=== PATIENT | male | born 1990 | race Caucasian/White ===

== ENCOUNTER 2023-07-15 22:23 | Emergency (ER) | payer OTHER ==
[2023-07-15] MEDS ORDERED: SODIUM CHLORIDE 0.9% 1,000 ML IV STA (22:39)
[2023-07-15] MEDS ORDERED: LORazepam 2 MG/ML VIAL IVP STA (22:40)
[2023-07-15] MEDS ORDERED: PHENobarbital 65 MG/ML VIAL IV STA (22:40)
[2023-07-15 22:56] LABS: BASOPHILS # (AUTO) 0.1 10^3/uL (0.0-0.1); BASOPHILS % (AUTO) 0.6 %; EOSINOPHILS % (AUTO) 0.3 %; HGB - HEMOGLOBIN 15.9 g/dL (14.0-18.0); LYMPHOCYTES # (AUTO) 1.2 10^3/uL (1.5-3.5); LYMPHOCYTES % (AUTO) 12.1 %; MEAN CORPUSCULAR HEMOGLOBIN 29.1 pg (27.0-31.0); MEAN CORPUSCULAR HGB CONC 34.6 g/dL (32.0-36.0); MEAN CORPUSCULAR VOLUME 84.1 fL (80.0-94.0); MEAN PLATELET VOLUME 8.5 fL (7.4-11.4); MONOCYTES # (AUTO) 0.8 10^3/uL (0.0-1.0); MONOCYTES % (AUTO) 8.1 %; NEUTROPHILS # (AUTO) 7.6 10^3/uL (1.5-6.6); NEUTROPHILS % (AUTO) 78.7 %; PLT - PLATELET COUNT 344 10^3/uL (130-450); RED BLOOD COUNT 5.47 10^6/uL (4.70-6.10); RED CELL DISTRIBUTION WIDTH 11.3 % (12.0-15.0); WHITE BLOOD COUNT 9.6 x10^3/uL (4.8-10.8)
--- NOTE | 2023-07-15 22:56 | ED Physician Documentation ---
History of Present Illness - Stated complaint Stated Complaint: WITHDRAWL - Chief complaint Chief Complaint: General - History obtained from History obtained from: Patient - Additonal information Additional information: The patient comes to the emergency department chief complaint of shakes and general feeling of unwellness that started around 1600 today. 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 He states that he is not feeling suicidal but does have some guilt. His last drink was 2300 yesterday and he states that when he has had benders before, he has had withdrawal symptoms as well and this is similar. He states he tried to eat today and ended up vomiting the fruit that he tried to eat. However, as long as he has not tried to eat, he does not feel nauseated. He states he is otherwise healthy and not on any medications. No other complaints at this time. PD PAST MEDICAL HISTORY - Past Medical History Past Medical History: No Cardiovascular: None Respiratory: None Neuro: None Endocrine/Autoimmune: None GI: None : None HEENT: None Psych: None Musculoskeletal: None Derm: None - Past Surgical History Past Surgical History: No - Present Medications Home Medications: Ambulatory Orders Medication Instructions Recorded Confirmed LORazepam [Ativan] 1 mg PO Q8H PRN #6 tablet 07/15/23 - Allergies Allergies/Adverse Reactions: Allergies Allergy/AdvReac Type Severity Reaction Status Date / Time No Known Drug Allergies Allergy Verified 07/15/23 22:40 - Social History Does the pt smoke?: No Smoking Status: Never smoker ETOH Use: Liquor Does the pt have substance abuse?: No - Immunizations Immunizations are current?: Yes - POLST Patient has POLST: No PD ED PE NORMAL - Vitals Vital signs reviewed: Yes - General General: Alert and oriented X 3, No acute distress, Well developed/nourished - HEENT HEENT: Atraumatic, PERRL, EOMI, Moist mucous membranes - Neck Neck: Supple, no meningeal sign - Cardiac Cardiac: No murmur, Other (Mildly tachycardic rate regular rhythm no murmurs.) - Respiratory Respiratory: No respiratory distress, Clear bilaterally - Abdomen Abdomen: Soft, Non tender, Non distended - Derm Derm: Normal color, Warm and dry, No rash - Extremities Extremities: No deformity, No edema - Neuro Neuro: Alert and oriented X 3, zinc chloride operator 2-12 intact, No motor deficit, No sensory deficit, Normal speech, Other (Mild, fine tremors, but otherwise normal.) - Psych Psych: Normal mood, Normal affect Results - Vitals Vitals: Vital Signs - 24 hr 07/15/23 07/15/23 07/16/23 22:34 23:27 00:03 Temperature 36.8 C Heart Rate 115 H 80 95 Respiratory 19 19 20 Rate Blood Pressure 148/68 H 135/81 H O2 Saturation 98 99 98 Oxygen O2 Source Room air - Labs Labs: Laboratory Tests 07/15/23 07/15/23 22:49 22:49 WBC 9.6 RBC 5.47 Hgb 15.9 Hct 46.0 MCV 84.1 MCH 29.1 MCHC 34.6 RDW 11.3 L Plt Count 344 MPV 8.5 Neut # (Auto) 7.6 H Lymph # (Auto) 1.2 L [place] # (Auto) 0.8 Eos # (Auto) 0.0 Baso # (Auto) 0.1 Absolute Nucleated RBC 0.00 Nucleated RBC % 0.0 Sodium 130 L Potassium 3.9 Chloride 93 L Carbon Dioxide 28 Anion Gap 9.0 BUN 16 Creatinine 0.8 Estimated GFR (MDRD) 111 Glucose 122 H Calcium 10.7 H Total Bilirubin 1.1 H AST 28 ALT 28 Alkaline Phosphatase 71 Total Protein 8.3 Albumin 5.2 Globulin 3.1 Albumin/Globulin Ratio 1.7 Lipase 19 Ethyl Alcohol < 10.0 PD Medical Decision Making - ED course Complexity details: reviewed results, re-evaluated patient, considered di fferential, d/w patient ED course: The patient was mildly tachycardic and hypertensive, but otherwise looked fairly good. He was started on IV fluids and given a dose of Ativan here in the emergency department. ER abdominal panel and CBC were also obtained. Laboratory studies overall were unremarkable. Alcohol level was negative. The patient was found to be feeling better and vital signs had normalized on reevaluation. He is stable for discharge. His command was with him and able to drive him home. I have sent a prescription for Ativan to the pharmacy of his choice and the patient will follow-up with [place] resources for substance abuse. We have discussed the usual indications for return. Departure - Departure Disposition: 01 Home, Self Care Clinical Impression: Alcohol withdrawal Qualifiers: Complication of substance-induced condition: uncomplicated Qualified Code(s): F10.930 - Alcohol use, unspecified with withdrawal, uncomplicated Condition: Stable Instructions: ED Withdrawal Alcohol Prescriptions: LORazepam [Ativan] 1 mg PO Q8H PRN #6 tablet PRN Reason: Alcohol Withdrawal Comments: You have been treated for your alcohol withdrawal in the emergency department today. Your labs overall look good and do not suggest any problems with your liver or other organ systems. It is important that you get help with your drinking if you feel that has become a problem. A prescription for medication for withdrawal for the next couple of days has been electronically transmitted to the [facility] pharmacy in [place]. You may take this medication as needed, according to the directions, if you feel that your withdrawal symptoms are coming back over the next couple of days. Please continue your plans to [place] Forms: PCP List Discharge Date/Time: 07/16/23 00:03
[2023-07-15 23:10] LABS: ALBUMIN 5.2 g/dL (3.2-5.5); ALBUMIN/GLOBULIN RATIO 1.7 (1.0-2.2); ALKALINE PHOSPHATASE 71 IU/L (42-121); ALT ALANINE AMINOTRANSFERASE 28 IU/L (10-60); AST ASPARTATE AMINOTRANSFERASE 28 IU/L (10-42); BILIRUBIN,TOTAL 1.1 mg/dL (0.2-1.0); BUN - BLOOD UREA NITROGEN 16 mg/dL (6-20); CALCIUM 10.7 mg/dL (8.5-10.3); CARBON DIOXIDE - CO2 28 mmol/L (21-32); CHLORIDE 93 mmol/L (101-111); CREATININE 0.8 mg/dL (0.6-1.3); ETOH - ETHANOL < 10.0 mg/dL; GFR - MDRD 111 (>89); GLUCOSE 122 mg/dL (74-104); LIPASE 19 U/L (11-82); POTASSIUM 3.9 mmol/L (3.5-4.5); SODIUM 130 mmol/L (135-145); TOTAL PROTEIN 8.3 g/dL (6.4-8.9)
[2023-07-16 00:07] VITALS: BP 135/81; O2SAT 98
== END 2023-07-16 00:03 | disposition home or self-care (01) ==
LOC: ED 22:23
DX: F10.930 Alcohol use, unspecified with withdrawal, uncomplicated (principal)
CPT/HCPCS: 36415; 80053; 80320; 83690; 85025; 99283; J2060